=== PATIENT | female | born 1985 | race African-American/Black ===

== ENCOUNTER 2016-12-18 14:20 | Emergency (ER) | payer SELFPAY ==
--- NOTE | 2016-12-18 14:43 | ER Document Report ---
ED Medical Screen (RME) - General Stated Complaint: VAGINAL DISCHARGE,IRRITATION,ODOR Time seen by provider: 14:41 Mode of Arrival: Ambulatory Information source: Patient Notes: 31-year-old female complaining of persistent vaginal discharge and odor in her doctor diagnosed her with bacterial vaginosis/yeast infection and she will treated with metronidazole pills. She did douche last week and the smell has persisted so her STD testing was negative. seen at health dept. TRAVEL OUTSIDE OF THE [place] IN LAST 30 DAYS: No - Related Data Allergies/Adverse Reactions: No Known Allergies Allergy (Verified 12/18/16 14:39) Past Medical History - Social History Chew tobacco use (# tins/day): No Frequency of alcohol use: None Drug Abuse: None Renal/ Medical History: Denies: Hx Peritoneal Dialysis Physical Exam - Vital signs Vitals: Temp Pulse Resp BP Pulse Ox 98.8 F 95 14 143/72 H 100 12/18/16 14:23 12/18/16 14:23 12/18/16 14:23 12/18/16 14:23 12/18/16 14:23 Course - Vital Signs Vital signs: Temp Pulse Resp BP Pulse Ox 98.8 F 95 14 143/72 H 100 12/18/16 14:23 12/18/16 14:23 12/18/16 14:23 12/18/16 14:23 12/18/16 14:23
--- NOTE | 2016-12-18 15:22 | ER Document Report ---
ED GI/ - General Mode of Arrival: Ambulatory TRAVEL OUTSIDE OF THE [place] IN LAST 30 DAYS: No - HPI Patient complains to provider of: Vaginal discharge Associated symptoms: Other - See above - General Chief Complaint: Vaginal Discharge Stated Complaint: VAGINAL DISCHARGE,IRRITATION,ODOR Notes: Patient is a 31 year old female who presents to the emergency department complaining of vaginal discharge onset a few weeks ago. Patient also complains of vaginal itching, burning, and odor. Patient reports that she went to the health department 2 weeks ago and was told she was negative for STDs and that she was treated for BV. Last week patient went to the doctor again with the same symptoms and was told to take Monistat for possible yeast infection. Patient reports there has been no relief with the medication. Patient has not been sexually active for 2 weeks now and a few day ago had implanon put in on 12/15. Patient reports that she did switch to the brand name of feminine deodorant spray before the symptoms began. (ROJELIO OSMAN) - Related Data Allergies/Adverse Reactions: No Known Allergies Allergy (Verified 12/18/16 14:39) Past Medical History - General Information source: Patient - Social History Smoking Status: Current Every Day Smoker Chew tobacco use (# tins/day): No Frequency of alcohol use: None Drug Abuse: None Family History: Reviewed & Not Pertinent Patient has suicidal ideation: No Patient has homicidal ideation: No Review of Systems - Review of Systems Constitutional: No symptoms reported EENT: No symptoms reported Cardiovascular: No symptoms reported Respiratory: No symptoms reported Gastrointestinal: No symptoms reported Genitourinary: No symptoms reported Female Genitourinary: See HPI, Vaginal discharge, Vaginal odor, Other - Vaginal itch and burn Musculoskeletal: No symptoms reported Skin: No symptoms reported Hematologic/Lymphatic: No symptoms reported Neurological/Psychological: No symptoms reported -: Yes All other systems reviewed and negative Physical Exam - Vital signs Interpretation: Normal - General General appearance: Appears well, Alert - HEENT Head: Normocephalic, Atraumatic - Respiratory Respiratory status: No respiratory distress - Genitourinary External exam: Normal Speculum exam: Vaginal discharge - [place]-cheese like discharge Vaginal bleeding: None Bimanuel exam: Normal - Extremities General upper extremity: Normal inspection General lower extremity: Normal inspection - Neurological Neuro grossly intact: Yes Cognition: Normal Orientation: AAOx4 Kun Coma Scale Eye Opening: Spontaneous Kun Coma Scale Verbal: Oriented Kun Coma Scale Motor: Obeys Commands Kun Coma Scale Total: 15 Speech: Normal - Psychological Associated symptoms: Normal affect, Normal mood - Skin Skin Temperature: Warm Skin Moisture: Dry Skin Color: Normal Course - Re-evaluation Re-evalutation: 12/18/16 22:49 Patient with normal physical exam with the exception of some mildly discharge. Likely BV. Patient has had some itching consistent with yeast. Patient will be started on Flagyl and fluconazole, and is to follow-up with her doctor. No evidence for STDs. Stable for discharge. Understands agrees with plan. Grateful for care (LOW TIAN) - Vital Signs Vital signs: Temp Pulse Resp BP Pulse Ox 99 F 92 20 136/68 H 100 12/18/16 16:50 12/18/16 16:50 12/18/16 16:50 12/18/16 16:50 12/18/16 16:50 Discharge - Discharge Clinical Impression: Bacterial vaginosis, Yeast infection Condition: Stable Disposition: HOME, SELF-CARE Instructions: Vaginosis, Bacterial ([facility]), Vaginal Yeast Infection ([facility]) Additional Instructions: Please follow-up with the health department as needed. Please return if you have any further concerns. Prescriptions: Fluconazole [Diflucan] 150 mg PO ONCE PRN #1 tablet PRN Reason: Metronidazole [Flagyl 500 mg Tablet] 500 mg PO BID #14 tablet Scribe Attestation: 12/18/16 22:49 I personally performed the services described in the documentation, reviewed and edited the documentation which was dictated to the scribe in my presence, and it accurately records my words and actions. (LOW TIAN) Scribe Documentation - Scribe Written by Re:: re Alatorre, 12/18/16, [id number] acting as scribe for :: Krystal
[2016-12-18 15:59] LABS: AMORPHOUS SEDIMENT,URINE TRACE /HPF; APPEARANCE,URINE CLOUDY; BILIRUBIN,URINE NEGATIVE (NEGATIVE); GLUCOSE, URINE NEGATIVE (NEGATIVE); KETONES,URINE NEGATIVE (NEGATIVE); LEUKOCYTE ESTERASE,URINE NEGATIVE (NEGATIVE); NITRITE,URINE NEGATIVE (NEGATIVE); PROTEIN,URINE NEGATIVE (NEGATIVE); URINE SPECIFIC GRAVITY 1.013; UROBILINOGEN,URINE NEGATIVE mg/dL (<2.0)
[2016-12-18] MEDS ORDERED: METRONIDAZOLE 500 MG TABLET PO ONE (16:15)
[2016-12-18] MEDS ORDERED: FLUCONAZOLE 100 MG TABLET PO ONE (16:15)
[2016-12-18 16:51] VITALS: BP 136/68
[2016-12-18 18:00] LABS: CHLAM PCR NOT DETECTED (NOT DETECT)
== END 2016-12-18 16:50 | disposition home or self-care (01) ==
LOC: ER 14:20
DX: N76.0 Acute vaginitis (principal); B37.9 Candidiasis, unspecified; N89.8 Other specified noninflammatory disorders of vagina; F17.210 Nicotine dependence, cigarettes, uncomplicated
CPT/HCPCS: 81001; 81025; 87086; 87210; 87491; 87591; 99283

== ENCOUNTER 2017-03-20 14:55 | Emergency (ER) | payer SELFPAY ==
[2017-03-20] MEDS ORDERED: ALBUTEROL SULFATE 0.083% NEB 2.5 MG/3 ML AMPUL NEB ONE (16:32)
--- NOTE | 2017-03-20 16:32 | RADIOLOGY REPORT (SQ) ---
EXAM DESCRIPTION: CHEST PA/LAT COMPLETED DATE/TIME: 03/20/2017 4:23 pm REASON FOR STUDY: cough COMPARISON: None. TECHNIQUE: Frontal and lateral radiographic views of the chest acquired. NUMBER OF VIEWS: Two view. LIMITATIONS: None. FINDINGS: LUNGS AND PLEURA: No opacities, masses or pneumothorax. No pleural effusion. MEDIASTINUM AND HILAR STRUCTURES: No masses or contour abnormalities. HEART AND VASCULAR STRUCTURES: Heart normal size. No evidence for failure. BONES: No acute findings. HARDWARE: None in the chest. OTHER: No other significant finding. IMPRESSION: NO SIGNIFICANT RADIOGRAPHIC FINDING IN THE CHEST. TECHNICAL DOCUMENTATION: JOB ID: [id number] [employer]- All Rights Reserved
--- NOTE | 2017-03-20 17:09 | ER Document Report ---
HPI - HPI Patient complains to provider of: COUGH Pain Level: 3 Context: pt is a 31-year-old female comes emergency department complaining of dry cough for the past 3 weeks. Denies any shortness of breath, dyspnea on exertion, chest pain, nausea, vomiting, abdominal pain, dizziness. smoker - CARDIOVASCULAR Cardiovascular: DENIES: Chest pain - DERM Skin Color: Normal Past Medical History - Social History Smoking Status: Never Smoker Chew tobacco use (# tins/day): No Frequency of alcohol use: None Drug Abuse: None Family History: Reviewed & Not Pertinent Patient has suicidal ideation: No Patient has homicidal ideation: No Renal/ Medical History: Denies: Hx Peritoneal Dialysis Surgical Hx: Negative Vertical Provider Document - CONSTITUTIONAL Agree With Documented VS: Yes Exam Limitations: No Limitations General Appearance: WD/WN, No Apparent Distress Notes: PHYSICAL EXAM GENERAL: Alert, interacts well. HEAD: Normocephalic, atraumatic. EYES: Pupils equal, round, and reactive to light. Extraocular movements intact. ENT: Oral mucosa moist, tongue midline. NECK: Full range of motion. Supple. Trachea midline. LUNGS: mild expiratory wheezes, no rales, or rhonchi. No respiratory distress. HEART: Regular rate and rhythm. No murmurs, gallops, or rubs. EXTREMITIES: Moves all 4 extremities spontaneously. No edema, radial and dorsalis pedis pulses 2/4 bilaterally. No cyanosis. NEUROLOGICAL: Alert and oriented x4. Normal speech. PSYCH: Normal affect, normal mood. SKIN: Warm, dry, normal turgor. No rashes or lesions noted. - INFECTION CONTROL TRAVEL OUTSIDE OF THE [place] IN LAST 30 DAYS: No - RESPIRATORY O2 Sat by Pulse Oximetry: 100 Course - Re-evaluation Re-evalutation: 03/20/17 19:58 pt is hemodynamically, no acute distress afebrile. No evidence of pneumonia on chest x-ray. Patient states that her cough improved after nebulized treatment. Will discharge home on steroid pack and inhaler - Vital Signs Vital signs: Temp Pulse Resp BP Pulse Ox 98.7 F 110 H 18 114/67 100 03/20/17 15:08 03/20/17 15:08 03/20/17 15:08 03/20/17 15:08 03/20/17 15:08 - Diagnostic Test Radiology reviewed: Image reviewed, Reports reviewed Discharge - Discharge Clinical Impression: Cough Condition: Good Disposition: HOME, SELF-CARE Instructions: Upper Respiratory Illness ([facility]), Bronchodilators ([facility]), Bronchospasm ([facility]) Prescriptions: Methylprednisolone [Medrol Dosepack (4 mg/Tab) 21 Tab/Dosepak] 4 mg PO ASDIR PRN #21 tab.ds.pk PRN Reason: Forms: Return to Work
[2017-03-20] MEDS ORDERED: ALBUTEROL SULFATE HFA (90 MCG/PUFF) 8 GM MDI (1 MDI/ER DISP) IH PRN (17:12)
[2017-03-20 17:27] VITALS: BP 108/62
== END 2017-03-20 17:30 | disposition home or self-care (01) ==
LOC: ER 14:55
DX: R05 Cough (principal)
CPT/HCPCS: 94640; 99283; 71020; J3490

== ENCOUNTER 2017-06-14 21:58 | Emergency (ER) | payer MEDICAID ==
--- NOTE | 2017-06-14 23:23 | ER Document Report ---
ED General - General Chief Complaint: BRYANT, earache,cough Stated Complaint: COLD SYMPTOMS Time Seen by Provider: 06/14/17 22:56 Mode of Arrival: Ambulatory Information source: Patient, [facility] Records Notes: This 32-year-old female patient comes emergency room with a plethora of complaints and a nearly totally positive review of systems. She lost her job as a [employer] 4 weeks ago. She reports she has been going downhill since then. She has repeated the phrase feel like I am going downhill several times during the interview. She reports she has been losing weight and has a eating disorder. She reports her headaches are getting worse and worse and worse. She claims to have felt chills and felt hot she has not checked her temperature because her son broke her thermometer but she feels like she is having hot flashes. She also reports her mouth is been watering a lot lately. She reports she mowed the yard recently and noticed a spot on her right lateral leg, 3 days later she noted an area of erythema to her right medial leg. She does not hurt and it does not itch. She has had a cough for the past few months which is nonproductive. She was seen here on 03/20/2017 and given a prescription for steroid Dosepak and a dispensed albuterol inhaler. She does report that the cough may have been better when she was using the inhaler. She is quite a heavy smoker. She states she has been cutting back on smoking recently. She also reports she has been cutting back on caffeine recently. She wonders if that could be causing her symptoms. She is also complaining of her periods being really bad recently after she had the control implant placed in her left arm about 4 months ago. When asked specifically why she came to the emergency room, she states she was complaining about all her symptoms and her father told her to come to the emergency room because that is what insurance in the hospital are for. She later stated she came here because "I just did what my dad told me to do". TRAVEL OUTSIDE OF THE [place] IN LAST 30 DAYS: No - Related Data Allergies/Adverse Reactions: No Known Allergies Allergy (Verified 03/20/17 15:08) Past Medical History - General Information source: Patient, [facility] Records - Social History Smoking Status: Current Every Day Smoker Cigarette use (# per day): Yes Chew tobacco use (# tins/day): No Smoking Education Provided: No Frequency of alcohol use: None Drug Abuse: None Occupation: Unemployed [employer] Lives with: Family, Parents Family History: Reviewed & Not Pertinent - Medical History Medical History: Negative Surgical Hx: Negative Review of Systems - Review of Systems Constitutional: See HPI EENT: See HPI Cardiovascular: No symptoms reported Respiratory: See HPI Gastrointestinal: See HPI Genitourinary: No symptoms reported Female Genitourinary: See HPI Musculoskeletal: No symptoms reported Skin: See HPI Hematologic/Lymphatic: No symptoms reported Neurological/Psychological: See HPI Physical Exam - Vital signs Vitals: Temp Pulse Resp BP Pulse Ox 98.7 F 75 20 132/78 H 100 06/14/17 22:52 06/14/17 22:52 06/14/17 22:52 06/14/17 22:52 06/14/17 22:52 Interpretation: Normal - General General appearance: Appears well, Alert In distress: None - HEENT Head: Normocephalic, Atraumatic Eyes: Normal Pupils: PERRL Tympanic membrane: Normal Nasal: Normal Mouth/Lips: Normal Pharynx: Normal Neck: Normal - Respiratory Respiratory status: No respiratory distress Breath sounds: Other - There is some rhonchi and wheezes heard on forced cough - Cardiovascular Rhythm: Regular Heart sounds: Normal auscultation Murmur: No - Abdominal Inspection: Normal - Back Back: Normal - Extremities General upper extremity: Normal inspection General lower extremity: Other - The right lateral leg has about a 2 cm round area slightly darkened that suggests possible insect or spider bite. The right medial leg has about a 3 x 7 cm rectangular shaped faint erythema to the skin is not warm or tender or raised - Neurological Neuro grossly intact: Yes - Psychological Associated symptoms: Normal mood, Other - Quite rapid speech - Skin Skin Temperature: Warm Skin Moisture: Dry Skin Color: Normal Course - Re-evaluation Re-evalutation: 06/14/17 23:33 I advised the patient I think her chronic cough may be related to occult asthma and made worsened by all of her cigarette smoking. Some of her other symptoms may be stress related caused by the loss of her job, and reducing her nicotine and caffeine intake. - Vital Signs Vital signs: Temp Pulse Resp BP Pulse Ox 98.7 F 75 20 132/78 H 100 06/14/17 22:52 06/14/17 22:52 06/14/17 22:52 06/14/17 22:52 06/14/17 22:52 - Laboratory Result Diagrams: 06/14/17 23:35 06/14/17 23:35 Laboratory results interpreted by me: 06/14/17 06/14/17 23:35 23:35 Seg Neutrophils % 40.1 L Lymphocytes % 48.0 H Glucose 113 H Discharge - Discharge Clinical Impression: Chronic cough, Caffeine withdrawal, Nicotine withdrawal Asthmatic bronchitis Qualifiers: Asthma severity: mild persistent Asthma complication type: uncomplicated Qualified Code(s): J45.30 - Mild persistent asthma, uncomplicated Headache Qualifiers: Headache type: tension-type Headache chronicity pattern: episodic headache Intractability: not intractable Qualified Code(s): G44.219 - Episodic tension- type headache, not intractable Condition: Stable Disposition: HOME, SELF-CARE Additional Instructions: Your cough is probably due to chronic asthmatic bronchitis made worse by smoking. Your headaches and many other symptoms may be due to withdrawing caffeine and nicotine. You should use the albuterol inhaler every 4 hours for the next several days and see if that improves her cough. Continue reducing caffeine use and smoking even if it does make you feel worse. The long-term gain will be worth it. Follow-up with a local medical doctor for recheck in several days if not beginning to improve. RETURN TO THE EMERGENCY ROOM IF ANY NEW OR WORSENING SYMPTOMS.
[2017-06-14 23:55] LABS: ABSOLUTE BASOPHILS # (AUTO) 0.1 10^3/uL (0.0-0.2); ABSOLUTE EOSINOPHILS # (AUTO) 0.1 10^3/uL (0.0-0.6); ABSOLUTE LYMPHOCYTES (AUTO) 2.6 10^3/uL (0.5-4.7); ABSOLUTE MONOCYTES (AUTO) 0.5 10^3/uL (0.1-1.4); ABSOLUTE NEUT (AUTO) 2.2 10^3/uL (1.7-8.2); BASOPHILS % (AUTO) 1.1 % (0-2); EOSINOPHILS % (AUTO) 1.1 % (0-6); HEMATOCRIT 37.7 % (36.0-47.0); HEMOGLOBIN 12.7 g/dL (12.0-15.5); HGB HCT DIFFERENCE 0.4; MEAN CORPUSCULAR HEMOGLOBIN 28.4 pg (27.0-33.4); MEAN CORPUSCULAR HGB CONC 33.6 g/dL (32.0-36.0); MEAN CORPUSCULAR VOLUME 85 fl (80-97); MONOCYTES % (AUTO) 9.7 % (3-13); RED BLOOD COUNT 4.46 10^6/uL (3.72-5.28); SEGMENTED NEUTROPHILS % (AUTO) 40.1 % (42-78); WHITE BLOOD COUNT 5.5 10^3/uL (4.0-10.5)
[2017-06-15 00:07] LABS: ALANINE AMINOTRANSFERASE 19 U/L (9-52); ALBUMIN 4.4 g/dL (3.5-5.0); ALKALINE PHOSPHATASE 58 U/L (38-126); ANION GAP 12 (5-19); ASPARTATE AMINO TRANSFERASE 19 U/L (14-36); BILIRUBIN,DIRECT 0.4 mg/dL (0.0-0.4); BILIRUBIN,TOTAL 0.4 mg/dL (0.2-1.3); BLOOD UREA NITROGEN 13 mg/dL (7-20); CALCIUM 10.2 mg/dL (8.4-10.2); CARBON DIOXIDE 23 mmol/L (22-30); CHLORIDE 106 mmol/L (98-107); CREATININE RESULT 0.67 mg/dL (0.52-1.25); GLUCOSE 113 mg/dL (75-110); POTASSIUM 3.9 mmol/L (3.6-5.0); SODIUM 140.5 mmol/L (137-145); TOTAL PROTEIN 7.7 g/dL (6.3-8.2)
[2017-06-15] MEDS ORDERED: ALBUTEROL SULFATE HFA (90 MCG/PUFF) 8 GM MDI (1 MDI/ER DISP) IH ONE (00:18)
[2017-06-15 00:42] LABS: APPEARANCE,URINE CLEAR; BILIRUBIN,URINE NEGATIVE (NEGATIVE); GLUCOSE, URINE NEGATIVE (NEGATIVE); KETONES,URINE NEGATIVE (NEGATIVE); LEUKOCYTE ESTERASE,URINE NEGATIVE (NEGATIVE); NITRITE,URINE NEGATIVE (NEGATIVE); PROTEIN,URINE NEGATIVE (NEGATIVE); URINE SPECIFIC GRAVITY 1.025; UROBILINOGEN,URINE NEGATIVE mg/dL (<2.0)
[2017-06-15 00:52] VITALS: BP 105/72
== END 2017-06-15 00:51 | disposition home or self-care (01) ==
LOC: ER 21:58
DX: J45.30 Mild persistent asthma, uncomplicated (principal); G44.219 Episodic tension-type headache, not intractable; F15.93 Other stimulant use, unspecified with withdrawal; F17.213 Nicotine dependence, cigarettes, with withdrawal; L53.9 Erythematous condition, unspecified; F50.9 Eating disorder, unspecified; Z97.5 Presence of (intrauterine) contraceptive device
CPT/HCPCS: 99283; 36415; 84443; 85025; 80053; 81001; J3490